=== PATIENT | female | born 1990 | race Caucasian/White ===

== ENCOUNTER → 2019-05-16 | Outpatient (CLI) | payer OTHER, SELFPAY | END | disposition home or self-care (01) | PROVIDERS: Visit Provider Obstetrics & Gynecology | DX: Z12.4 Encounter for screening for malignant neoplasm of cervix (principal); Z11.3 Encounter for screening for infections with a predominantly sexual mode of transmission ==

== ENCOUNTER → 2019-07-28 09:29 | Outpatient (CLI) | payer OTHER, SELFPAY ==
[2017-06-21 08:12] VITALS: BMI 29.7
[2019-07-28 10:33] LABS: Hematocrit 41.6 % (37-47); Hemoglobin 14.5 g/dL (12.0-15.0); Mean Corp Hgb Conc 34.9 g/dL (32-36); Mean Corpuscular Hgb 31.6 pg (27.0-32.0); Mean Corpuscular Volume 90.6 fL (81-99); Mean Platelet Vol. 10.8 fl (6.2-12.0); Platelet Count 259 K/mm3 (150-450); RBC Distribution Width CV 12.1 % (11.6-14.6); RBC Distribution Width SD 39.9 fl (35.1-43.9); Red Blood Count 4.59 M/mm3 (4.2-5.4); White Blood Count 7.6 K/mm3 (4.4-11.0)
[2019-07-28 11:03] LABS: Thyroid Stim Hormone (TSH) 1.41 uIU/mL (0.358-3.74)
== END ==
PROVIDERS: Visit Provider Obstetrics & Gynecology
DX: N92.0 Excessive and frequent menstruation with regular cycle (principal)
CPT/HCPCS: 36415; 84443; 85027

== ENCOUNTER 2019-08-14 08:04 | Day surgery (SDC) | payer OTHER, SELFPAY ==
[2019-08-13 17:41] LABS: Hematocrit 42.8 % (37-47); Hemoglobin 14.6 g/dL (12.0-15.0); Mean Corp Hgb Conc 34.1 g/dL (32-36); Mean Corpuscular Hgb 31.4 pg (27.0-32.0); Mean Platelet Vol. 10.6 fl (6.2-12.0); Platelet Count 244 K/mm3 (150-450); RBC Distribution Width CV 12.4 % (11.6-14.6); RBC Distribution Width SD 41.4 fl (35.1-43.9); Red Blood Count 4.65 M/mm3 (4.2-5.4); White Blood Count 9.1 K/mm3 (4.4-11.0)
[2019-08-13 17:59] LABS: Partial Thromboplast Time 29.8 Seconds (24.1-36.2); Prothrombin Time (Protime)PT. 13.3 SECONDS (11.7-14.9)
--- NOTE | 2019-08-13 22:17 | HP.PCM_ITS ---
History and Physical Date of Admission: 08/14/19 Surgical History and Physical Date: 08/13/2019 Name: ANDI MONTANO Age: 29 Date of : 1990 Andi Montano, a 29 year old female 3 0 0 0 3, presents for hYSTEROSCOPY, d, polypectomy on August 14, 2019 at 12:00. -- Planned hysteroscopy, dilation and curettage with Symphion due to menorrhea and cervical - endometrial polyp. [facility] MEDICATIONS HISTORY: Patient is also takin. Prilosec 10 mg oral suspension,delayed release, 1 PO QD ALLERGIES: No Known Allergies Infections - Chicken pox and HX. OF UTI'S Illnesses - none Accidents - None Hospitalizations - Childbirth and outpatient procedures scoliosis; Review of Systems: GENERAL - Denies fever, or chills SKIN - Denies skin changes EYES - Denies visual changes EARS - Denies difficulty hearing NOSE - Denies nasal congestion or bleeding MOUTH - Denies sore throat or difficulty swallowing NECK - Denies pain or swelling RESPIRATORY - Denies shortness of breath or wheezing CARDIOVASCULAR - Denies palpitations or chest pain GASTROINTESTINAL - Denies nausea, vomiting, diarrhea, constipation GENITOURINARY - irregular bleeding MUSCULOSKELETAL - Denies joint or muscle pain NEUROLOGICAL - Denies localized numbness or weakness PSYCHIATRIC - Denies depression or anxiety ENDOCRINE - Denies heat or cold intolerance, weight loss or gain HEMATO-IMMUNOLOGIC - Denies excesive bleeding with cuts SOCIAL HISTORY: Alcohol Use - drinks occasionally Smoking - Smoker. Quit Mar 09, 2014. Diet - balanced Diet and caffeine < 2 drinks per day Lifestyle - high stress lifestyle, and he is not FOB. Getting divorce. 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 Last 2015. Sexual Activity - Residence - buying house in [place] w SO, he has 13 yo son 50/[address] custody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 vein flushing 2 years ago ; - 2. 06/21/2017 lap bilateral salpingectomy ; Summer Mannie Juarez MD - PHYSICAL EXAM BP- 132/86 Sitting, Right arm, regular cuff Temp- 98.1 Taken Orally Weight- 250.44059 lbs Height- 71 inch BMI:34.94 CONSTITUTIONAL - NAD, well nourished, and well developed SKIN - No rash, lesions, or ulcers HEENT - normocephalic, atraumatic, sclerae anicteric NECK - No nodes, no nuchal rigidity and thyroid normal size and texture LUNGS - CTA x2 without wheezes, crackles or rales CARDIAC - Regular rate and rhythm without rubs, murmurs, or gallops ABDOMEN - Without hepatosplenomegaly, distention, masses, rebound, or guarding; normal bowel sounds; no hernias EXTREMITIES - No edema or calf tenderness NEUROLOGICAL - normal gait, normal balance, normal motor PSYCHIATRIC - A and O to time, place, person, mood and affect External Genitial Vagina - non-tender without lesions Urethra/Urethral Meatus - non-tender Bladder - non-tender Vagina - vaginal howard are pink and moist without loss of rugae and no evidence of atropy Cervix - without cervical motion tenderness and has normal size and features without evident lesions Uterus - enlarged uterus 8 wks, wt 125-150 g Adnexa - clear without massess or tenderness Pap - done ULTRASOUND UTERUS: 9.6 x 5.4 x 4.1 cm. ENDOMETRIAL ECHO: .5 cm and is fluid filled. Pt is bleeding. RIGHT OVARY: 2.4 x 1.3 x 1.2 cm. LEFT OVARY: 3 x 1.6 x 1.5 cm. ASSESSMENT/PLAN: 1. Excessive And Frequent Menstruation With Regular Cycle Hx cervical polyp, US suggestive of polyp counseled on procedure, how performed, surgical risks Reviewed preop preparation, anticipated hospitalization, recovery Consents signed and reviewed Preop labs pending
[2019-08-14] VITALS (8 sets, daily range): BP systolic 115–140; BP diastolic 69–98; PULSE 61–90; RESP 16–18; TEMP 36.6–37.1; O2SAT 99–100; BMI 34.9
[2019-08-14 08:33] LABS: Internal QC Validated? YES +Cl - CLEAR BKGD; Pregnancy, Urine Negative Negative
[2019-08-14] MEDS: Lactated Ringers 1,000 ML 125 ML IV (08:35)
--- NOTE | 2019-08-14 10:00 | EMB_PTH ---
PATIENT: ANDI MONTANO LOC: [facility] [place] U#:[id number] AGE/SX: 29/F ROOM: RE08/14/[address]: Dr. Leisa Juarez MD : 1990 BED: DIS: 08/14/2019 SPEC #: [id number] RECD: 08/14/19 11:52 STATUS: MIR MARANDA #: [id number] SONYA: 08/14/19 10:[address]: Leisa Boudreaux DEPT: SURGICAL PATHOLOGY RECD BY: Jayme Serrano ENTERED: 08/14/19 13:15 SP TYPE: ENDOM BX/C OTHR DR: No Primary Care Phys Tissues: Endometrium, NOS Procedures: Surgery Specimen Level IV HEADER OPERATION: Hysteroscopy, Symphion D & C, polypectomy PRE-OP DIAGNOSIS: Excessive and frequent menstruation with regular cycle TISSUE SUBMITTED: Endometrial curettings MICROSCOPIC DIAGNOSIS Endometrium, curettings: Polypoid fragments of mildly disordered proliferative endometrium. AM:agueda 08/15/19 MICROSCOPIC DESCRIPTION Slides are reviewed. GROSS DESCRIPTION Received in fixative is one container labeled with the patient's name and designated endometrial curettings. The specimen consists of multiple irregular fragments of pink-ricci soft tissue that in aggregate measure 5 x 4 x 0.2 cm. The specimen is totally submitted in two cassettes. / AM:agueda 08/14/19 TC:5 CPT: 30554
--- NOTE | 2019-08-14 11:26 | PCM.OPRPT ---
Problem List (1) Menorrhagia Status: Acute Qualifiers: Menorrhagia type: with regular cycle Qualified Code(s): N92.0 - Excessive and frequent menstruation with regular cycle Report of Operation Date of Procedure: 08/14/19 Pre-Operative Diagnosis: Menorrhagia, endometrial polyp Post-Operative Diagnosis: Menorrhagia Surgery/Procedure Performed:: Hysteroscopy, dilation and curettage Description of Surgical Findings:: normal uterine cavity, fluffy endometrial no polyps seen Candidate for LAVH or TVH if should desire hysterectomy Type of Anesthesia:: Local MAC Anesthesiologist: Porfirio Clark Specimen's removed: endometrial curettings Estimated Blood Loss (mL): 5 Fluids Replaced: 700 ml Description of Procedure: Patient was brought to the operating room and placed in dorsal supine position and induced under MAC. She is placed into dorsolithotomy. The perineum was prepped and draped in sterile fashion. A weighted speculum was placed into the vagina and cervix grasped at the anterior cervical lip using a single-tooth tenaculum. Paracervical block was placed with a total of 20 cc of 1% lidocaine. The cervix was subsequently dilated. Hysteroscopy was performed using the Symphion hysteroscopic system demonstrating abundant endometrium however no polyp was visualized. The resectoscope was removed to obtain endometrial sampling and followed by sharp curettage. The procedure was complete. The tenaculum was removed from the cervix. The patient was placed into dorsal supine position, awakened and transferred to the recovery room without complication. Sponge counts were correct x2. - Complications none - Admit VTE Documentation VTE Present on Admission: No VTE Mechan Device Prophylaxis: SCD's VTE Pharm Prophylaxis ordered?: No
--- NOTE | 2019-08-14 11:35 | DCINST_ITS ---
Discharge Diet: No Restrictions Discharge Activity: Return to Normal Activity, May Not Shower, - - No tub bath for 1 week, nothing in the vagina for 2 weeks May resume sexual activity in: 4 weeks Call your doctor if you observe: Fever of 101 or Higher, Inability to urinate, Inability to have a bowel movement, Using more than one pad per hour, Shortness of breath, Chest pain, Calf discomfort, Uncontrolled pain Allergies/Adverse Reactions: Allergies No Known Allergies Allergy (Verified 08/14/19 08:28) Medications to take at Discharge Omeprazole Magnesium [Prilosec Otc] 20 mg PO PRN PRN 03/28/17 Ibuprofen 600 mg PO TID PRN #30 tab 08/14/19 Oxycodone [Oxyir] 5 mg PO Q6H PRN PRN 3 Days #5 tab 08/14/19 The following prescriptions were given: Ibuprofen 600 mg PO TID PRN #30 tab PRN Reason: Pain Or Fever Transmission Status: Pending to [facility] Oxycodone [Oxyir] 5 mg PO Q6H PRN PRN 3 Days #5 tab PRN Reason: severe pain Prescription Printed Primary Care Physician: Care Physician,No Primary [Primary Care Provider] - Test Results: Test results from this visit will be discussed in further detail at your follow- up appointment, if applicable. Please Follow Up With: Leisa Alamo MD When: 4 weeks
== END 2019-08-14 12:56 | disposition home or self-care (01) ==
LOC: SDC 08:05 → AC 08:06
PROVIDERS: Referring Provider Obstetrics & Gynecology; Visit Provider Obstetrics & Gynecology
PROC: 0UB98ZZ Excision of Uterus, Via Natural or Artificial Opening Endoscopic (ICD-10-PCS; CPT 58558; principal; 2019-08-14 09:45)
DX: N92.0 Excessive and frequent menstruation with regular cycle (principal); K21.9 Gastro-esophageal reflux disease without esophagitis; M41.9 Scoliosis, unspecified; Z86.718 Personal history of other venous thrombosis and embolism; Z87.891 Personal history of nicotine dependence
CPT/HCPCS: 00952; 58558; 36415; 81025; 85027; 85610; 85730; 86850; 86900; 86901; 88305; J7120; J2405

== ENCOUNTER → 2020-10-01 11:53 | Outpatient (CLI) | payer OTHER, SELFPAY ==
[2019-08-14 08:28] VITALS: BMI 34.9
[2020-10-05 10:33] LABS: HPV APTIMA, High Risk Negative (Negative)
== END ==
PROVIDERS: Visit Provider Obstetrics & Gynecology
DX: Z12.4 Encounter for screening for malignant neoplasm of cervix (principal)
CPT/HCPCS: 87624; 88175; G0145

== ENCOUNTER 2020-12-09 05:46 | Day surgery (SDC) | payer OTHER, SELFPAY ==
[2019-08-14 08:28] VITALS: BMI 34.9
[2020-12-03 16:36] LABS: Hematocrit 40.2 % (37-47); Mean Corp Hgb Conc 34.8 g/dL (32-36); Mean Corpuscular Hgb 31.5 pg (27.0-32.0); Mean Corpuscular Volume 90.5 fL (81-99); Mean Platelet Vol. 10.6 fl (6.2-12.0); Platelet Count 269 K/mm3 (150-450); RBC Distribution Width CV 12.7 % (11.6-14.6); RBC Distribution Width SD 41.7 fl (35.1-43.9); Red Blood Count 4.44 M/mm3 (4.2-5.4); White Blood Count 10.7 K/mm3 (4.4-11.0)
[2020-12-03 17:10] LABS: Prothrombin Time (Protime)PT. 12.9 SECONDS (11.7-14.9)
[2020-12-03 17:11] LABS: Partial Thromboplast Time 29.1 Seconds (24.1-36.2); Prolactin 4.1 ng/mL; Thyroid Stim Hormone (TSH) 0.97 uIU/mL (0.358-3.74)
[2020-12-09] VITALS (7 sets, daily range): BP systolic 101–127; BP diastolic 57–76; PULSE 62–72; RESP 16–18; TEMP 36.1–36.6; O2SAT 95–100; BMI 35.4
[2020-12-09] MEDS: Lactated Ringers 1,000 ML 100 ML IV ×2 (06:30→08:00)
--- NOTE | 2020-12-09 07:08 | HP.PCM.OB_ITS ---
History and Physical Date of Admission: 12/09/20 Surgical History and Physical Date: 12/09/2020 Name: ANDI MONTANO Age: 30 Date of : 1990 Andi Montano, a 30 year old female 3 0 0 0 3, presents for Hysteroscopy, dilation and curettage, endometrial ablation on December 09, 2020 at 7:30. -- Andi has Monthly, prolonged menses that lasts anywhere from 12-17 days. Bleeding is very heavy, severe cramps. Aleena for 6--21 hysteroscopy, D, ablation. Had US prior to apt. No changes in her health since last visit. Allergy and medication lists current. Consents signed. Instructions given. Questions answered. MEDICATIONS HISTORY: Current medications prescribed by our practice are: 1. Lovenox 40 mg/0.4 mL subcutaneous syringe, 40 mg SQ for 14 days starting on 12/10/2020 Patient is also takin. Prilosec 10 mg oral suspension,delayed release, 1 PO QD ALLERGIES: No Known Allergies Infections - Chicken pox and HX. OF UTI'S Illnesses - none Accidents - None Hospitalizations - Childbirth and outpatient procedures scoliosis; Review of Systems: GENERAL - Denies fever, or chills SKIN - Denies skin changes EYES - Denies visual changes EARS - Denies difficulty hearing NOSE - Denies nasal congestion or bleeding MOUTH - Denies sore throat or difficulty swallowing NECK - Denies pain or swelling RESPIRATORY - Denies shortness of breath or wheezing CARDIOVASCULAR - Denies palpitations or chest pain GASTROINTESTINAL - Denies nausea, vomiting, diarrhea, constipation GENITOURINARY - Denies dysuria, frequency of urination, incontinence of urine MUSCULOSKELETAL - Denies joint or muscle pain NEUROLOGICAL - Denies localized numbness or weakness PSYCHIATRIC - Denies depression or anxiety ENDOCRINE - Denies heat or cold intolerance, weight loss or gain HEMATO-IMMUNOLOGIC - Denies excessive bleeding with cuts SOCIAL HISTORY: Alcohol Use - drinks occasionally Smoking - occasional--advised to quit Diet - balanced Diet and caffeine < 2 drinks per day Lifestyle - high stress lifestyle, and he is not FOB. Getting divorce. 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 Last 2015. Sexual Activity - Residence - buying house in [facility] [place], he has 13 yo son 50/[address] custody[address] 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 08/14/2019 hysteroscopy, D and C ; Leisa Juarez MD - 2. vein flushing 2 years ago ; - 3. 06/21/2017 lap bilateral salpingectomy ; Leisa Juarez MD - PHYSICAL EXAM BP- 120/82 Sitting, Right arm, large cuff Weight- 251.73725 lbs Height- 71 inch BMI:35.08 CONSTITUTIONAL - NAD, well nourished, and well developed SKIN - No rash, lesions, or ulcers HEENT - Normocephalic, PERRLA, EOMI NECK - No nodes, no nuchal rigidity and thyroid normal size and texture LYMPH NODES - Palpation of lymph nodes in neck and groins within normal limits LUNGS - CTA x2 without wheezes, crackles or rales CARDIAC - Regular rate and rhythm without rubs, murmurs, or gallops BREAST - No dominant masses, no tenderness, no axillary adenopathy, no nipple discharge, no skin changes ABDOMEN - Without hepatosplenomegaly, distention, masses, rebound, or guarding; normal bowel sounds; no hernias EXTREMITIES - No edema or calf tenderness NEUROLOGICAL - Cranial nerves II-XII grossly intact PSYCHIATRIC - A and O to time, place, person, mood and affect External Genital Vagina - non-tender without lesions Urethra/Urethral Meatus - non-tender Bladder - non-tender Vagina - vaginal howard are pink and moist without loss of rugae and no evidence of atrophy Cervix - without cervical motion tenderness and has normal size and features without evident lesions Uterus - 5-6 cm in size, mobile and nontender Adnexa - clear without masses or tenderness ASSESSMENT/PLAN: 1. Encounter For Other Preprocedural Examination Pt with AUB elects for hysteroscopy D, endometrial ablation Pt with hx of DVT after . Educated pt on risk of DVT in surgery and post operatively. States understanding and wishes to proceed. Will given Lovenox 40mg qd post op No health changes for pt. No limitation of activity. R/b/a of procedure discussed, all questions answered, consent signed 2. Excessive And Frequent Menstruation With Regular Cycle heavy and lengthy periods that is effecting her daily life and work s/p Tubal ligation u/s today with 8.9cm uterus
--- NOTE | 2020-12-09 08:05 | PCM.OPRPT ---
Report of Operation Date of Procedure: 12/09/20 Pre-Operative Diagnosis: Abnormal uterine bleeding Post-Operative Diagnosis: Abnormal uterine bleeding Surgery/Procedure Performed:: Hysteroscopy, Dilma Description of Surgical Findings:: Surgeon: Nasir Mosley MD Anesthesia: MAC EBL: 5 cc IV fluids: 1000 cc Urine output 150 cc Complications: None Specimen: None Findings: Hysteroscope showed no pathology in the endometrial cavity. Dilma ablation with cavity length 6 cm. Post procedure hysteroscope with no new pathology and normal signs of ablation. Consent: Patient with abnormal uterine bleeding elected for hysteroscopy Dilma endometrial ablation. Patient understands the risk of the procedure include but are not limited to visceral or vascular injury, prolonged hospitalization, blood loss and need for transfusion, reoperation. Patient states understanding wish to proceed. All questions were answered consent was signed. Patient was brought back to the OR where MAC anesthesia found be adequate. Patient was prepared and draped in a dorsal lithotomy position with yellowfin stirrups. A weighted speculum is placed in posterior aspect of vagina and cervical dilators were used to dilate the cervix. Hysteroscope was inserted and above findings were noted. Cavity length was found to be 6 cm. Dilma device inserted under direct visualization. Dilma safety test passed x2. 120 seconds ablation performed. Post procedure hysteroscope with above findings. Good hemostasis was noted. All counts correct x2. Patient tolerated procedure well was brought to recovery in stable condition.
--- NOTE | 2020-12-09 08:09 | PCM.DC ---
Discharge Instructions Diet Discharge Diet: No restrictions Activity Discharge Activity: Return to Normal Activity, May Drive and May Shower May resume sexual activity in: 4-6 weeks Weight Bearing Status: Weight bearing as tolerated Dressing / Incision Call your doctor if your incision/area has: Continuous Slow Oozing, Sudden Increased Bleeding and Foul Smelling Discharge Call your doctor if you observe: Fever of 101 or Higher, Shortness of breath and Chest pain Follow Up Care Please Follow Up With: Nasir Mosley MD When: 2 weeks postoperatively Test Results: Test results from this visit will be discussed in further detail at your follow-up appointment, if applicable. Discharge Plan Admission Attending Provider: Nasir Mosley Primary Care Provider: Care Physician,eLnora Primary Discharge Orders/Prescriptions Prescriptions: No Action omeprazole magnesium [Prilosec OTC] 20 MG tablet,delayed release (DR/EC) 20 mg PO DAILY RF: 0 ibuprofen 600 MG tablet 600 mg PO TID PRN (Reason: Pain Or Fever) Qty: 30 RF: 0 Disposition Discharge Orders: Discharge Patient (Routine); Ordered 12/09/20 Ordered By: Dr. Nasir Mosley
== END 2020-12-09 09:45 ==
LOC: SDC 05:46 → AC 05:47
PROVIDERS: Referring Provider Obstetrics & Gynecology; Visit Provider Obstetrics & Gynecology
PROC: 0U5B8ZZ Destruction of Endometrium, Via Natural or Artificial Opening Endoscopic (ICD-10-PCS; CPT 58558; principal; 2020-12-09 07:15)
DX: N92.0 Excessive and frequent menstruation with regular cycle (principal); F17.200 Nicotine dependence, unspecified, uncomplicated; Z86.718 Personal history of other venous thrombosis and embolism; K21.9 Gastro-esophageal reflux disease without esophagitis
CPT/HCPCS: 00952; 58563; 36415; 84146; 84443; 85027; 85610; 85730; 86850; 86900; 86901; 87426; C9803; J7120; J2405